=== PATIENT | male | born 1965 | race Caucasian/White ===

== ENCOUNTER 2020-07-30 15:53 | Inpatient (IN) | payer BC, OTHER ==
[2020-07-30 17:36] LABS: #Monocytes 0.8 thou/uL (0.11-0.59); #Neutrophils 13.6 thou/uL (1.40-6.50); %Basophils 0.2 % (0.0-1.0); %Eosinophils 0.1 % (0.0-10.0); %Lymphocytes 6.7 % (21.0-51.0); %Monocytes 5.1 % (0.0-10.0); %Neutrophils 87.9 % (42.0-75.0); Hemoglobin 16.9 g/dL (14.0-18.0); Mean Corpuscular HGB CONC 34.9 g/dL (32.0-36.0); Mean Corpuscular Hemoglobin 32.2 pg (27.0-31.0); Mean Corpuscular Volume 92.1 fL (78.0-98.0); Mean Platelet Volume 9.3 fL (7.4-10.4); Platelet Count 132 thou/uL (130-400); RBC Distribution Width 11.9 % (11.5-14.5); Red Blood Cell (RBC) Count 5.27 mill/uL (4.70-6.10); White Blood Cell (WBC) Count 15.5 thou/uL (4.8-10.8)
--- NOTE | 2020-07-30 17:54 | RAD ---
LEFT HIP: 07/30/20 Two views. HISTORY: Fall with injury. There is a comminuted displaced intertrochanteric fracture involving the left hip. The visualized lef t hemipelvis appears intact. IMPRESSION: Displaced comminuted intertrochanteric fracture left hip. POS: AGW
[2020-07-30 18:00] LABS: ALT (SGPT) 67 U/L (8-55); AST (SGOT) 51 U/L (5-34); Alkaline Phosphatase 118 U/L (40-110); Anion Gap 19 mmol/L (10-20); BUN (Urea Nitrogen) 20 mg/dL (8.4-25.7); Bilirubin, Total 1.3 mg/dL (0.2-1.2); Calc. Creatinine Clearance 0 mL/min (70-130); Calcium 8.7 mg/dL (7.8-10.44); Carbon Dioxide 16 mmol/L (22-29); Chloride 106 mmol/L (98-107); Globulin 3.8 g/dL (2.4-3.5); Glucose 344 mg/dL (70-105); Potassium 5.3 mmol/L (3.5-5.1); Protein, Total 7.8 g/dL (6.0-8.3); Sodium 136 mmol/L (136-145)
[2020-07-30] MEDS ORDERED: Morphine 4 MG/ML VIAL ONE (18:00)
[2020-07-30] MEDS ORDERED: CEFAZOLIN 2 GM in Premix Bag 1 BAG IVPB SCH (18:15)
--- NOTE | 2020-07-30 18:40 | CON ---
DATE OF CONSULTATION: HISTORY OF PRESENT ILLNESS: We were asked by ER and Trauma to see the patient. The patient was going out to check the mail and was holding onto wood fence and slipped on the ice, landing on his left hip, sustaining a left intertrochanteric fracture. The patient denies any other injuries. He is moving his lower extremities well. Denies any sensation losses. His is at the bedside with him. He is currently resting on a gurney in room 16. He denies any other complaints. No numbness or tingling in the extremities. PAST MEDICAL HISTORY: Positive for hypertension, diabetes, which he takes no medications for. CURRENT MEDICATIONS: None. ALLERGIES: NONE. SURGERIES: He has had a collapsed lung in the past with some lung surgery and did okay after surgery. FAMILY HISTORY: Noncontributory. SOCIAL HISTORY: For the most part, retired, . Chews tobacco. Has occasional EtOH beverage, but no drug products whatsoever. REVIEW OF SYSTEMS: A little bit anxiousness right now, does not like being in the hospital, some left hip pain otherwise discussed. Rest of review of systems is negative. PHYSICAL EXAMINATION: GENERAL: Well-nourished, well-developed mildly obese male, resting on a gurney in room 16, in no acute distress. Speech clear. Affect pleasant. Answers question appropriately. He is alert and oriented x3. HEENT: Scalp is atraumatic. Face symmetric. Tongue midline. NECK: Supple. Trachea midline. EXTREMITIES: Upper extremities, equal size, shape, symmetry. Normal bulk and tone. VITAL SIGNS: Respirations 16, no acute distress, pulse is in the 130s. PELVIS: No pain with rocking. Left hip and left lower extremity are mildly shortened and outward rotated. Tenderness to palpation. Otherwise, he has good sensations down the lower extremities. Pulses are equal and symmetric. LABORATORY DATA: X-rays shows a left intertrochanteric fracture. COVID test being acquired. WBC 15.5, glucose is 344. LFTs are a little bit elevated also. ASSESSMENT: Left hip fracture. PLAN: I spoke with Trauma. I spoke with Anesthesia. I spoke with the patient. The patient is ready to get fixed trauma. Anesthesia cleared the patient, although his pulse is a little bit high. It may just be some anxiety from being in the hospital. We discussed a DHS plating, went over the surgical procedure. The patient understands the risks and benefits with surgery. His questions concerns have been addressed and he is amenable to go forth with surgery. We will get him consented for surgery, set up for antibiotics, and I also spoke with his about procedure. Everybody is amenable to go forth with surgery. Job ID: [id number] MTDD
[2020-07-30] MEDS ORDERED: Labetalol HCl 100 MG/20 ML VIAL ONE (19:55)
--- NOTE | 2020-07-30 20:51 | HP ---
REQUESTING PHYSICIAN: Jamal Johnson DO ATTENDING SURGEON: Porfirio Johnson DO CONSULTATIONS: Orthopedics, Yakov Camara MD. HISTORY OF PRESENT ILLNESS: The patient is a 55-year-old man who was walking along the road when he slipped and fell on ice, landing on his left hip. He had immediate pain with discomfort, was unable to ambulate. He was brought to the emergency department where he underwent evaluation and examination, was noted to have a left femoral neck fracture, at which time, we were asked to evaluate the patient for admission and obtain Orthopedic consultation. The patient denied loss of consciousness or syncopal events prior to his fall. The patient denies blood thinner use. ALLERGIES: NONE. CURRENT MEDICATIONS: None. PAST MEDICAL HISTORY: Hypertension, type 2 diabetes. SOCIAL HISTORY: The patient chews tobacco. He drinks one to two times a week. Denies drug use and is employed in a [employer] factory. He lives at home with family. REVIEW OF SYSTEMS: A 10-point review of systems is negative as otherwise stated. Of note, the patient reports that he has significant anxiety in hospitals and around doctors, which is noticeable in his heart rate. PHYSICAL EXAMINATION: VITAL SIGNS: Blood pressure 159/89, heart rate 130, respirations 20, oxygen saturation 98% on room air, temperature is 98.4. GENERAL: The patient is resting comfortably in bed. He is awake, alert, conversant, appropriate. Ages [place] Coma Scale is 15. HEENT: Head is normocephalic and atraumatic. Eyes, extraocular motions intact. PERRLA bilaterally. Ears are atraumatic without discharge. Nose is atraumatic without discharge. Oropharynx is clear. NECK: Nontender. Trachea is midline with no JVD. CHEST: Clear to auscultation with good inspiratory and expiratory effort. HEART: Regular rhythm with a tachy rate. ABDOMEN: Soft, flat, nontender with active bowel sounds. EXTREMITIES: Neurovascularly intact x4. PELVIS: Stable with tenderness to palpation to the left hip consistent with his fracture. BACK: By report is atraumatic and nontender. LABORATORY FINDINGS: White blood cell count 15.5, hemoglobin 16.9, hematocrit 48.5, platelets 132. Sodium 136, potassium 5.3, chloride 106, CO2 of 16, BUN 20, creatinine 0.86, glucose 344. COVID, urinalysis and urine drug screen are all pending. RADIOGRAPHIC FINDINGS: Views of the left hip show displaced femoral neck fracture. ASSESSMENT: 1. Status post ground-level fall. 2. Displaced left femoral neck fracture. 3. Acute pain secondary to above. 4. Hyperglycemia secondary to noncompliance. 5. Hypertension again secondary to noncompliance. 6. Tachycardia with normal hemoglobin, likely related to hyperglycemia and "white coat syndrome.". PLAN: The plan will be to admit the patient to the surgical floor. We will hydrate the patient, started on sliding scale insulin, repeat his labs, make him n.p.o. after midnight, do pain control, pulmonary toilet, gastritis, mechanical VTE prophylaxis. Originally, the plan was to take the patient to the OR tonight, but in light of his hyperglycemia, tachycardia and mildly elevated white blood cell count decision was made between Trauma Ortho and Anesthesiology that we will wait until tomorrow. The evaluation, examination, laboratory, and radiographic findings discussed with attending prior to this dictation. Job ID: [id number]
--- NOTE | 2020-07-30 20:57 | RAD ---
PORTABLE CHEST: 07/30/20 HISTORY: Fall. COMPARISON: 06/10/09. Correlation right hemidiaphragm is stable. Interstitial markings in the mid and peripheral right lung are also stable. No evidence of infiltrate or acute process. Heart and mediastinum unremarkable and stable. There are fractures involving the right 4th, 5th and 6th ribs which are age indeterminate on this [place] dy. These appear to represent old healed fractures. IMPRESSION: Right rib fractures which appear old. Recommend clinical correlation. Chest is otherwise unremarkable and stable from prior exam. POS: AGW
[2020-07-30 22:59] LABS: Bacteria/HPF None Seen HPF (None Seen); Bilirubin Negative (Negative); Blood, Urine Negative (Negative); Clarity Clear (Clear); Glucose, Urine (Dipstick) Greater than 1000 mg/dL (Negative); Ketone, Urine 40 mg/dL (Negative); Leukocyte Negative Leu/uL (Negative); Mucous/LPF Rare LPF (<2+); Nitrite Negative (Negative); Protein, Urine (Dipstick) Negative (Neg-Trace); RBC/HPF 0-3 HPF (0-3); Specific Gravity, Urine 1.037 (1.002-1.036); Squamous Epithelial None Seen HPF (0-3); Urobilinogen Normal mg/dL (Less than 2); WBC/HPF 0-3 HPF (0-3)
[2020-07-30 23:00] LABS: Urine Culture Reflex No No
[2020-07-30 23:08] LABS: Amphetamine Not Detected (NotDetected); Barbiturates Screen Not Detected (NotDetected); Benzodiazepine Screen Not Detected (NotDetected); Cocaine Metabolite Screen Not Detected (NotDetected); Medtox Control Line Valid? VALID (VALID); Medtox Reader # READER 1; Methadone Not Detected (NotDetected); Methamphetamine Not Detected (NotDetected); Opiate Screen Detected (NotDetected); Oxycodone Screen Not Detected (NotDetected); Phencyclidine (PCP) Not Detected (NotDetected); THC/Cannabinoid Screen Not Detected (NotDetected); Tricyclic Screen Not Detected (NotDetected)
[2020-07-30] MEDS ORDERED: Dextrose 5% in Water 1,000 ML IV PRN (23:42)
[2020-07-30] MEDS ORDERED: hydrALAZINE 20 MG/ML VIAL SLOW IVP PRN (23:42)
[2020-07-30] MEDS ORDERED: Promethazine HCl 25 MG/ML VIAL IM PRN ×2 (23:42)
[2020-07-30] MEDS ORDERED: Ondansetron PF 4 MG/2 ML Vial IVP PRN (23:42)
[2020-07-30] MEDS ORDERED: traMADol HCl 50 MG TAB PO PRN (23:42)
[2020-07-30] MEDS ORDERED: Cyclobenzaprine 10 MG TAB PO PRN (23:42)
[2020-07-30] MEDS ORDERED: Insulin Regular 300 UNITS/3 ML VIAL SC PRN ×2 (23:42)
[2020-07-30] MEDS ORDERED: Ondansetron ODT 4 MG TAB PO PRN (23:42)
[2020-07-30] MEDS ORDERED: Dextrose 50% Abboject 50 ML SYRINGE SLOW IVP PRN (23:42)
[2020-07-30] MEDS ORDERED: Morphine 2 MG/ML VIAL SLOW IVP PRN (23:42)
[2020-07-30] MEDS ORDERED: Acetaminophen 500 MG TAB ONE (23:59)
[2020-07-31] MEDS ORDERED: traMADol HCl 50 MG TAB ONE
[2020-07-31] MEDS ORDERED: Insulin Regular 300 UNITS/3 ML VIAL ONE (00:10)
[2020-07-31] MEDS: Sodium Chloride 0.9% 1,000 ML IV SCH ×2 (00:10→08:02)
[2020-07-31] MEDS: Acetaminophen 500 MG TAB PO SCH ×5 (00:10→23:33)
[2020-07-31] MEDS: traMADol HCl 50 MG TAB PO SCH ×5 (00:11→23:32)
--- NOTE | 2020-07-31 01:09 | PRG ---
DATE OF SERVICE: 07/31/2020 A 55-year-old male, status post slip and fall with comminuted, displaced intertrochanteric fracture of the left hip. Plan for surgery today. Patient's blood pressure is improved since he has been in the emergency department. The patient has been started on pain regimen. Glucose is 312 at 12:44, If patient's blood sugar does not show improvement at 01:30 with 4 units of insulin the nurse has given him, we will give the patient short-acting lispro to bring the glucose down below 220. Job ID: [id number] MTDD
[2020-07-31 01:57] LABS: SARS-CoV-2 PCR by NAA Not Detected (NotDetected)
[2020-07-31] MEDS ORDERED: Insulin Regular 300 UNITS/3 ML VIAL SC SCH ×2 (03:00→05:15)
[2020-07-31 04:16] VITALS: BMI 35.4
[2020-07-31] MEDS: Ibuprofen 800 MG TAB PO SCH ×4 (05:23→23:32)
[2020-07-31 06:18] LABS: Anion Gap 13 mmol/L (10-20); BUN (Urea Nitrogen) 19 mg/dL (8.4-25.7); Calc. Creatinine Clearance 145 mL/min (70-130); Calcium 8.4 mg/dL (7.8-10.44); Carbon Dioxide 22 mmol/L (22-29); Chloride 108 mmol/L (98-107); Glucose 292 mg/dL (70-105); Phosphorus 3.4 mg/dL (2.3-4.7); Potassium 4.3 mmol/L (3.5-5.1); Sodium 139 mmol/L (136-145)
[2020-07-31 06:28] LABS: #Lymphocytes 1.6 thou/uL (1.20-3.40); #Monocytes 1.3 thou/uL (0.11-0.59); #Neutrophils 7.2 thou/uL (1.40-6.50); %Basophils 0.4 % (0.0-1.0); %Eosinophils 0.2 % (0.0-10.0); %Lymphocytes 15.3 % (21.0-51.0); %Monocytes 13.2 % (0.0-10.0); Hemoglobin 15.2 g/dL (14.0-18.0); Mean Corpuscular HGB CONC 34.7 g/dL (32.0-36.0); Mean Corpuscular Volume 92.2 fL (78.0-98.0); Mean Platelet Volume 9.1 fL (7.4-10.4); Platelet Count 116 thou/uL (130-400); Platelet Morphology Comment Appears Decreased; Red Blood Cell (RBC) Count 4.75 mill/uL (4.70-6.10); White Blood Cell (WBC) Count 10.2 thou/uL (4.8-10.8)
[2020-07-31] MEDS ORDERED: Ampicillin 2 GM VIAL ONE (08:03)
[2020-07-31] MEDS: Famotidine 20 MG TAB PO SCH ×2 (09:00→21:15)
[2020-07-31] MEDS ORDERED: Fentanyl 100 MCG/2 ML VIAL ONE ×5 (09:25→11:03)
[2020-07-31] MEDS ORDERED: PROPOFOL 200 MG/20 ML VIAL ONE (10:02)
[2020-07-31] MEDS ORDERED: Ondansetron PF 4 MG/2 ML Vial ONE (10:02)
[2020-07-31] MEDS ORDERED: Rocuronium Bromide 10 MG/ML (10ML VIAL) ONE (10:02)
--- NOTE | 2020-07-31 10:42 | RAD ---
TWO VIEWS OF THE LEFT HIP: COMPARISON: 07/30/2020. HISTORY: Left proximal femur fracture. FINDINGS/IMPRESSION: Two limited intraoperative fluorosocpic views of the left hip show the patient to be status post intr amedullary mitul fixation of the intratrochanteric femur fracture. No perihardware lucency is seen. POS: EAA
[2020-07-31] MEDS ORDERED: Morphine 4 MG/ML VIAL ONE (10:55)
[2020-07-31] MEDS ORDERED: Metoprolol Tartrate 5 MG/5 ML VIAL ONE (11:01)
[2020-07-31] MEDS ORDERED: Non-Formulary Medication 1 EACH PO PRN (11:18)
[2020-07-31] MEDS ORDERED: PACU-Morphine 4MG/ML VIAL SLOW IVP PRN (11:30)
[2020-07-31] MEDS ORDERED: Morphine Sulfate 2 MG/ML SYRINGE SLOW IVP PRN (11:30)
[2020-07-31] MEDS ORDERED: Promethazine HCl 25 MG/ML VIAL IM/IV PRN (11:30)
[2020-07-31] MEDS ORDERED: Ondansetron HCl/PF 4 MG/2 ML Vial IVP PRN (11:30)
[2020-07-31] MEDS: Insulin Regular 300 UNITS/3 ML VIAL SC PRN ×2 (12:57→16:10)
--- NOTE | 2020-07-31 13:25 | OP ---
DATE OF PROCEDURE: 07/31/2020 PROCEDURE PERFORMED: Left femur intertrochanteric fracture, short trochanteric nail. PREOPERATIVE DIAGNOSIS: Left intertrochanteric fracture. POSTOPERATIVE DIAGNOSIS: Left intertrochanteric fracture. COMPLICATIONS: None. ESTIMATED BLOOD LOSS: Minimal. GAMING COMMISSIONER: Kate Whitmore PA-C. IMPLANT: Synthes 10-mm short trochanteric nail. INDICATIONS: Mr. Gunn is a 55-year-old male, who fell and fractured his left proximal femur. He has been indicated for intramedullary nail fixation to restore anatomic alignment and promote healing. Risks have been reviewed in detail. He has elected to proceed with the operation. DESCRIPTION OF PROCEDURE: Mr. Gunn was identified in the preoperative holding area. His correct extremity was marked. He was carried to the operating room. He was positioned supine. General anesthesia was induced. A multidisciplinary time-out was performed. The left lower extremity was prepped and draped in sterile fashion. We made a small incision proximal to the tip of the trochanter. We dissected down through subcutaneous tissues and inserted our guidewire at the tip of the trochanter. At this point, we placed our reamer over the guidewire, opening the proximal bone. We then inserted a short trochanteric nail from proximal to distal. We placed our guide pin in the centered position of the femoral head and overdrilled this. We then impacted the helical blade. This was seated appropriately in a dynamic position. Next, we placed our distal CrossLock screw. We took final x-ray images. We thoroughly irrigated with copious lavage. At this point, we closed in layers. A sterile dressing was applied. The patient was taken to the recovery room in good condition. The day care assistant surgeon was responsible for positioning the patient, preparing the injured extremity, applying the tourniquet, and assisting in preparation for surgery. The day care assistant was instrumental in reducing the injured limb by applying traction and reduction maneuvers as well as holding retractors and reduction tools. The day care assistant also was instrumental in assisting in exposure throughout the operation using appropriate retractors. The day care assistant participated in closure of the operative site as well as dressing application and splint application. Job ID: [id number]
[2020-07-31] MEDS: CEFAZOLIN 2 GM in Premix Bag 1 BAG IVPB SCH ×2 (15:00→23:33)
--- NOTE | 2020-07-31 18:25 | PRG ---
DATE OF SERVICE: 07/31/2020 SUBJECTIVE: The patient is currently on the surgical floor. He is awaiting surgery for his left intertrochanteric femur fracture. He had no issues overnight. His pain is controlled and he has been n.p.o. PHYSICAL EXAMINATION: VITAL SIGNS: Temperature is 98.1, heart rate 97, blood pressure 160/87, respirations 18, oxygen saturation 97% on room air. GENERAL: The patient is resting comfortably in bed. He is awake, alert, conversant, appropriate. [place] Coma Scale is 15. HEENT: Unremarkable. LUNGS: Clear to auscultation bilaterally. HEART: Regular rate and rhythm. ABDOMEN: Soft, nondistended. EXTREMITIES: Neurovascularly intact x4. LABORATORY FINDINGS: White blood cell count 10.2, hemoglobin 15.2, hematocrit 43.8, platelets 116. Sodium 139, potassium 4.3, chloride 108, CO2 of 22, BUN 19, creatinine 0.79, glucose 292, magnesium 2.0, phosphorus 3.4. There are no radiographs to review this morning. ASSESSMENT: 1. Status post ground level fall. 2. Displaced left femoral neck fracture. 3. Acute pain secondary to above. 4. Hyperglycemia secondary to noncompliance. 5. Hypertension again secondary to noncompliance. PLAN: Plan will be to continue supportive care, encourage physical and occupational therapy. We will adjust his sliding scale insulin and postoperatively, begin working with physical and occupational therapy and discuss placement at that time. The patient was started on metoprolol 12.5 for his hypertension. The patient was discussed with Dr. Johnson during rounds this morning. Job ID: [id number]
[2020-07-31] MEDS: Metoprolol Tartrate 25 MG TAB PO SCH (21:15)
[2020-07-31] MEDS ORDERED: Insulin Glargine 8 UNITS in Pre-Filled Syringe 1 EACH SC SCH (22:45)
--- NOTE | 2020-08-01 03:32 | PRG ---
DATE OF SERVICE: 08/01/2020 Mr. Gunn is a 55-year-old male, status post left intertrochanteric fracture. The patient was resting comfortably in bed. Sleeping on this evening rounds. No signs of acute distress. Patient is on room air. Vitals, temp 97.7, pulse 82, O2 saturation 97%, and blood pressure 130/86. The patient has been working with PT/OT aggressively, patient wishes to return home. We will continue to work with the patient to control his hypertension while in the hospital. Started the patient on insulin sliding scale for uncontrolled diabetic. Patient does not see PCP. Once the patient is discharged, the patient will establish a family medicine doctor. Continue with mechanical and chemical DVT prophylaxis. Encouraged the patient to sit up in a chair. 1 s/p ground level fall 2 s/p left IT fx 3 HTN controlled 4 Diabetes controlled Plan Dispo pending Job ID: [id number] MTDD
[2020-08-01] MEDS: Ibuprofen 800 MG TAB PO SCH ×3 (05:46→20:26)
[2020-08-01] MEDS: Acetaminophen 500 MG TAB PO SCH ×3 (05:46→17:47)
[2020-08-01] MEDS: traMADol HCl 50 MG TAB PO SCH ×3 (05:47→17:48)
[2020-08-01] MEDS: Insulin Regular 300 UNITS/3 ML VIAL SC PRN ×3 (05:47→16:49)
[2020-08-01 06:17] LABS: #Basophils 0.1 thou/uL (0.0-0.2); #Eosinphils 0.1 thou/uL (0.0-0.7); #Lymphocytes 1.8 thou/uL (1.20-3.40); #Monocytes 0.8 thou/uL (0.11-0.59); #Neutrophils 3.8 thou/uL (1.40-6.50); %Basophils 0.9 % (0.0-1.0); %Eosinophils 1.3 % (0.0-10.0); %Lymphocytes 27.9 % (21.0-51.0); %Monocytes 11.5 % (0.0-10.0); %Neutrophils 58.3 % (42.0-75.0); Hemoglobin 12.4 g/dL (14.0-18.0); Mean Corpuscular HGB CONC 34.2 g/dL (32.0-36.0); Mean Corpuscular Hemoglobin 32.1 pg (27.0-31.0); Mean Corpuscular Volume 93.9 fL (78.0-98.0); Mean Platelet Volume 9.1 fL (7.4-10.4); Platelet Count 84 thou/uL (130-400); RBC Distribution Width 11.9 % (11.5-14.5); Red Blood Cell (RBC) Count 3.86 mill/uL (4.70-6.10); White Blood Cell (WBC) Count 6.5 thou/uL (4.8-10.8)
[2020-08-01 06:41] LABS: Anion Gap 9 mmol/L (10-20); BUN (Urea Nitrogen) 17 mg/dL (8.4-25.7); Calc. Creatinine Clearance 147 mL/min (70-130); Calcium 8.1 mg/dL (7.8-10.44); Carbon Dioxide 29 mmol/L (22-29); Chloride 107 mmol/L (98-107); Glucose 220 mg/dL (70-105); Magnesium 1.9 mg/dL (1.6-2.6); Phosphorus 3.1 mg/dL (2.3-4.7); Potassium 4.2 mmol/L (3.5-5.1); Sodium 141 mmol/L (136-145)
[2020-08-01] MEDS: CEFAZOLIN 2 GM in Premix Bag 1 BAG IVPB SCH (08:41)
[2020-08-01] MEDS: Metoprolol Tartrate 25 MG TAB PO SCH ×2 (08:44→20:26)
[2020-08-01] MEDS: Enoxaparin Sodium 40 MG/0.4 ML SYRINGE SC SCH (08:44)
[2020-08-01] MEDS: Famotidine 20 MG TAB PO SCH ×2 (08:44→20:26)
[2020-08-02] MEDS: traMADol HCl 50 MG TAB PO SCH ×4 (00:03→17:24)
[2020-08-02] MEDS: Acetaminophen 500 MG TAB PO SCH ×4 (00:03→17:24)
--- NOTE | 2020-08-02 00:59 | PRG ---
DATE OF SERVICE: 08/01/2020 SUBJECTIVE: Mr. Gunn is a 55-year-old male, hospital day #2, status post ORIF of left intertrochanteric femur fracture. The patient really has no issues, and glucose is somewhat increased, but his sliding scale has been increased. Pain is generally controlled. PHYSICAL EXAMINATION: VITAL SIGNS: Temperature is 97.6, blood pressure is 149/89, respiratory rate is 14, saturating 97% on room air, pulse 96. GENERAL: 55-year-old male sitting up, in no acute distress. RESPIRATORY: Equal rise and fall. No distress. CARDIOVASCULAR: Strong pulses. MUSCULOSKELETAL: Dressing to the hip dry and in place. EXTREMITIES: He moves extremities well. PSYCH: Normal mood and affect. NEURO: Alert and oriented to person, place, time, and event. LABORATORY DATA: White blood cell count of 6.5, platelets are 84, hemoglobin and hematocrit are 12.4 and 36.3, respectively. Sodium is 141, potassium is 4.2, chloride is 107, CO2 is 29, creatinine is 0.78, glucose is 220, phos is 3.1, and mag of 1.9. ASSESSMENT: 1. Status post ground-level fall. 2. Displaced left femoral neck fracture, status post open reduction and internal fixation. 3. Acute traumatic pain. 4. Hyperglycemia secondary to noncompliance, improving. 5. Hypertension, stable. PLAN: 1. Continue to work with PT/OT. 2. Awaiting placement. 3. Monitor glucose closely. We have increased this, and slowly it is down trending down. 4. I will continue all other supportive care. The patient will either be discharged home at his request or to rehab based on how he feels in the morning. I have updated the patient and the patient's family at the bedside and answered all questions. Job ID: [id number]
[2020-08-02] MEDS: Ibuprofen 800 MG TAB PO SCH ×3 (06:25→21:11)
[2020-08-02] MEDS: Insulin Regular 300 UNITS/3 ML VIAL SC PRN ×3 (06:31→16:21)
[2020-08-02] MEDS: Metoprolol Tartrate 25 MG TAB PO SCH ×2 (08:42→21:10)
[2020-08-02] MEDS: Famotidine 20 MG TAB PO SCH ×2 (08:43→21:11)
[2020-08-02] MEDS: Enoxaparin Sodium 40 MG/0.4 ML SYRINGE SC SCH (08:43)
[2020-08-02] MEDS ORDERED: Bisacodyl 5 MG TAB PO SCH (10:15)
--- NOTE | 2020-08-02 10:27 | PRG ---
DATE OF SERVICE: 08/02/2020 SUBJECTIVE: Rajesh is a 55-year-old male, postop day 2 from a left hip intertrochanteric fracture, treated with short trochanteric nail fixation. He is doing very well. He is comfortable. He is ambulating greater than 200 feet yesterday and I believe he is anticipating a short stay in rehab. Otherwise, has no complaints. OBJECTIVE: VITAL SIGNS: Temperature 98, pulse 91, respiratory rate 20, blood pressure 140/87. GENERAL: He is alert and oriented to person, place, time, situation, responsive, appropriate with examiner. EXTREMITIES: Incision is clean. No strike through. No erythema. No drainage. No malrotation or shortening of the left lower extremity. LABORATORY DATA: Hemoglobin and hematocrit 12.4 and 36.3. IMPRESSION: 1. A 55-year-old male postop day 2, left intertrochanteric fracture, treated with short trochanteric nail fixation. 2. Asymptomatic, mild anemia, postoperative in nature. PLAN: Continue current care. Weightbearing as tolerated. Disposition per Trauma Team. Job ID: [id number]
--- NOTE | 2020-08-02 19:49 | PRG ---
DATE OF SERVICE: 08/02/2020 SUBJECTIVE: Luis A is a 55-year-old male, hospital day #3, status post ORIF left intertrochanteric femur fracture. He is postop day #2. Pain is generally controlled. He is sitting up. He did have a bowel movement after we started a bowel regimen. He is hoping to go to [facility]. The pain is generally controlled. He was teri-tottering whether he wanted to go home or he states he may want to go to [facility]. OBJECTIVE: VITAL SIGNS: Temperature is 98.0, blood pressure 148/87, heart rate is 90, breathing 20 times per minute, 99% on room air. GENERAL: A 55-year-old male sitting up in no acute distress. Nontoxic appearing. RESPIRATORY: Equal rise and fall. No respiratory distress. EXTREMITIES: Moves his extremities. Warm extremities, no distress. No acute pain while he is sitting still. PSYCH: Normal mood and affect. NEURO: GCS is 15. LABORATORY DATA: There is nothing aside from a Yjbsu-pa-Ynam blood sugar of 187 today. ASSESSMENT AND PLAN: 1. Status post ground level fall. 2. Displaced left femoral neck fracture, status post ORIF. 3. Acute traumatic pain, improving. 4. Hyperglycemia secondary to noncompliance, stable and improving. 5. Hypertension, stable. PLAN: 1. Continue to work with PT/OT. 2. Awaiting placement. 3. Insulin was increased a few days ago. Waiting to deal when we land in this. 4. I have updated the patient and the patient's at the bedside and answered all questions. Job ID: [id number]
[2020-08-03] MEDS: Acetaminophen 500 MG TAB PO SCH ×3 (00:26→12:53)
[2020-08-03] MEDS: traMADol HCl 50 MG TAB PO SCH ×3 (00:27→12:52)
[2020-08-03] MEDS: Ibuprofen 800 MG TAB PO SCH ×2 (06:15→15:04)
[2020-08-03] MEDS: Metoprolol Tartrate 25 MG TAB PO SCH (08:14)
[2020-08-03] MEDS: Enoxaparin Sodium 40 MG/0.4 ML SYRINGE SC SCH (08:15)
[2020-08-03] MEDS: Famotidine 20 MG TAB PO SCH (08:15)
[2020-08-03] MEDS ORDERED: Bisacodyl 5 MG TAB PO SCH (09:00)
[2020-08-03] MEDS ORDERED: Senokot 8.6 MG TAB PO SCH (09:00)
[2020-08-03 16:32] VITALS: BP 159/95; TEMP 97.5
[2020-08-03] MEDS ORDERED: metFORMIN 500 MG TAB PO SCH (17:00)
--- NOTE | 2020-08-05 05:13 | PQF ---
CLINICAL DOCUMENTATION CLARIFICATION FORM: Dear : Edi Maher Date / Time: 08/05/2020511 Please exercise your independent, professional judgment in responding to the clarification form. Clinical indicators are provided on the bottom of this form for your review In your clinical opinion based on clinical findings below, can you please further specify Anemia if: Please check appropriate box(es): [ ] Acute blood loss anemia [ X ] Post-op anemia related to acute blood loss [ ] Other diagnosis, please specify [ ] Unable to determine Physician Signature: Date/Time: For continuity of documentation, please document condition throughout progress notes and discharge summary. Thank You. To be completed by CDI/Coding staff for physician review: Present Clinical Indicators - Signs / Symptoms / Labs Results and Location in Medical Record [x] RBC 5.27, Hgb 16.9, Hct 48.5 Laboratory 07/30 [x] RBC 3.86, Hgb 12.4, Hct 36.3 Laboratory 08/01 [x] BP 140/87, Pulse 91, Resp 20, Temp 98 Vital signs 08/02 [x] Asymptomatic, mild Anemia, postoperative in nature PN p1 08/02 Teachle PA- C [x] s/p ORIF PN p1 08/02 Teachle PA-C [x] Estimated blood loss: Minimal Operative report 07/31 Dr Rubalcava Present Risk Factors Results and Location in Medical Record [x] Femoral fx s/p ORIF Operative report 07/31 Dr Rubalcava [x] DM Operative report 07/31 Dr Rubalcava [x] HTN Operative report 07/31 Dr Rubalcava Present Treatments Results and Location in Medical Record [x] IVF NS 1L MAR 07/30 [x] Monitor Hgb and Hct Laboratory 07/30-08/01 [facility] Signature: Kendal Vaughnfritz Phone #: [phone] Date/Time: 08/05/20511 This is a permanent part of the Medical Record [facility]
--- NOTE | 2020-08-05 09:16 | DIS ---
DATE OF ADMISSION: 07/30/2020 DATE OF DISCHARGE: 08/03/2020 ADMISSION DIAGNOSES: 1. Status post ground level fall. 2. Displaced left femoral neck fracture. 3. Acute pain secondary to above. 4. Hyperglycemia and hypertension secondary to noncompliance. CONSULTATIONS: Orthopedics, Dr. Rubalcava. PROCEDURES: Left femur intertrochanteric fracture, short trochanteric nail. SUMMARY: The patient is a 55-year-old man, who was brought to the emergency department after having a ground level fall while walking on the ice. He underwent evaluation and examination, was noted to have the above injury, at which time, he was brought to the facility and due to his blood pressure and glucose, it was felt that he should be maximized medically before going to the operating room. He was overnight and he did well. The following morning, he underwent his procedure and began physical and occupational therapy postoperatively. The patient continued to progress quite well. On the day of discharge, the patient was ambulating greater than 250 feet. He was able to do all of his activities of daily living. His blood glucose was controlled as was his hypertension. The patient was given explicit instructions to follow up this week with a primary care provider. If he did not have one, we gave him information to the [facility] to establish himself as he needs followup with his diabetes and his hypertension. The patient agreed to this as did family. The patient will also follow up with Dr. Rubalcava in 2 to 3 weeks or sooner as needed. Job ID: [id number]
== END 2020-08-03 17:39 | DRG 481 ==
LOC: ERS 15:53 → ERHOLD 17:29 → SURG B 07-31 04:31
PROVIDERS: ADMIT Surgery; ATTEND Surgery
PROC: 0QS734Z Reposition Left Upper Femur with Internal Fixation Device, Percutaneous Approach (ICD-10-PCS; principal; 2020-07-31)
DX: S72.142A Displaced intertrochanteric fracture of left femur, initial encounter for closed fracture (principal); D62 Acute posthemorrhagic anemia; Z20.822 Contact with and (suspected) exposure to COVID-19; I10 Essential (primary) hypertension; F17.220 Nicotine dependence, chewing tobacco, uncomplicated; W00.0XXA Fall on same level due to ice and snow, initial encounter; E11.65 Type 2 diabetes mellitus with hyperglycemia; R00.0 Tachycardia, unspecified; Y92.008 Other place in unspecified non-institutional (private) residence as the place of occurrence of the external cause; Z91.14 Patient's other noncompliance with medication regimen
CPT/HCPCS: 36415; 36416; 71045; 76000; 80048; 80053; 80306; 81001; 83735; 84100; 85025; 86850; 86900; 86901; 87635; 93005; 96374; 96375; C1713; G0390; J0290; J0360; J0690; J1650; J1815; J2270; J2405; J2704; J3010; U0003; U0005